=== PATIENT | male | born 1990 | race Caucasian/White ===

== ENCOUNTER 2024-02-23 17:42 | Inpatient (IN) ==
[2024-02-23 18:48] LABS: Urine Appearance Clear; Urine Bilirubin Negative (Negative); Urine Blood Negative (Negative); Urine Color Colorless; Urine Glucose Negative (Negative); Urine Ketones Negative (Negative); Urine Nitrite Negative (Negative); Urine Protein Negative (Negative); Urine Specific Gravity 1.006 (1.002-1.030); Urine Urobilinogen Negative (Negative)
[2024-02-23] MEDS: NS 0.9% 1000 ml BAG 1,000 ML IV ONE (18:56)
[2024-02-23 19:33] LABS: ALT 74 U/L (7-52); Acetaminophen < 15 mcg/mL; Albumin 4.8 g/dL (3.2-5.2); Alkaline Phosphatase 52 U/L (35-149); Anion Gap 10 mmol/L (2-16); Blood Urea Nitrogen 11 mg/dL (6-24); CO2 Carbon Dioxide 32 mmol/L (22-32); Calcium 8.9 mg/dL (8.6-10.3); Chloride 101 mmol/L (101-111); Creatinine, Serum 0.85 mg/dL (0.67-1.17); Globulin 2.4 g/dL (2-4); Glucose 85 mg/dL (70-100); Salicylate < 2.50 mg/dL (<30); Sodium 143 mmol/L (135-145); Total Bilirubin 0.7 mg/dL (0.2-1.0); Total Protein 7.2 g/dL (6.4-8.9); eGFR CKD-EPI 117.7 (>60)
[2024-02-23 19:34] LABS: Alcohol, S 420 mg/dL (<13)
[2024-02-23 19:35] LABS: Urine Benzodiazepine Screen Presumptive Positive (None Detect); Urine Cannabinoids Screen None Detected (None Detect); Urine Opiates Screen None Detected (None Detect)
[2024-02-23] MEDS: Thiamine 100 MG/ML 2 ml VIAL 100 MG, Folic Acid IV 1 MG, Multiple Vitamin IV ADULT 10 M... IV ONE (20:10)
[2024-02-23 22:05] LABS: ABS Eosinophils 0.1 10^3/uL (0.0-0.5); ABS Lymphocytes 2.9 10^3/uL (1.0-4.8); ABS Monocytes 0.4 10^3/uL (0.0-1.1); ABS Neutrophils 2.3 10^3/uL (1.5-7.6); Eosinophil % 1.4 %; Hematocrit 41.1 % (38-53); Hemoglobin 13.8 g/dL (13.2-16.3); Lymphocyte % 50.4 %; Mean Corpuscular Hgb Conc 33.5 g/dL (31-36); Mean Corpuscular Volume 92.4 fL (80-97); Mean Platelet Volume 7.2 fL (7.5-11.2); Nucleated Red Blood Cells % 0.1 %/100WBC (0.0-0.8); Platelet Count 161 10^3/uL (150-450); Red Blood Count 4.45 10^6/uL (4.06-5.63); Red Cell Distribution Width 15.9 % (12-17); White Blood Count 5.6 10^3/uL (3.6-10.2)
[2024-02-24 04:09] LABS: Potassium, Whole Blood 3.8 mmol/L (3.4-4.5)
[2024-02-24 04:35] LABS: Albumin 3.6 g/dL (3.2-5.2); Albumin/Globulin Ratio 2.3 (1-3); Calcium 7.9 mg/dL (8.6-10.3); Creatinine, Serum 0.72 mg/dL (0.67-1.17); Globulin 1.6 g/dL (2-4); Potassium 3.8 mmol/L (3.5-5.0); Total Bilirubin 0.9 mg/dL (0.2-1.0); Total Protein 5.2 g/dL (6.4-8.9); eGFR CKD-EPI 123.7 (>60)
[2024-02-24] MEDS: Lactated Ringers 1000 ml BAG 1,000 ML IV SCH (07:37)
[2024-02-24] MEDS ORDERED: Al Hydrox/Mg Hydrox/Simet LIQ 30 ML UDC PO PRN (11:38)
[2024-02-24] MEDS: DULoxetine DR 30 mg CAP PO SCH (12:56)
[2024-02-24] MEDS: DULoxetine DR 60 mg CAP PO SCH (12:56)
[2024-02-25 08:34] LABS: HDL Cholesterol 128.4 mg/dL
[2024-02-27] MEDS: DULoxetine DR 60 mg CAP PO SCH (08:24)
[2024-02-27] MEDS: Naltrexone INJ 380 MG IM ONE (15:05)
[2024-02-28] MEDS: DULoxetine DR 60 mg CAP PO SCH (07:56)
[2024-03-03 09:06] VITALS: BP 127/79
== END 2024-03-04 07:30 | DRG 775 ==
LOC: ED 17:42 → EDHOLD 02-24 11:38 → BSU 02-24 15:35
PROVIDERS: ADMIT Psychiatry & Neurology Psychiatry; ATTEND Student in an Organized Health Care Education/Training Program